=== PATIENT | female | born 1985 | race Caucasian/White ===

== ENCOUNTER 2025-04-10 14:07 | Emergency (ER) | payer OTHER ==
[~2025-04-10] VITALS: Ht 165.1 cm; Wt 45.4 kg
[2025-04-10 15:23] LABS: PLATELET COUNT (AUTO) 176 K/uL (179-408); RED BLOOD CELL COUNT(AUTO) 4.26 MIL/uL (3.63-4.92); RED CELL DISTRIBUTION WIDTH 13.3 % (12.3-17.7); WHITE BLOOD COUNT (AUTO) 10.4 K/uL (3.8-11.8)
[2025-04-10 15:31] LABS: CREATININE 0.6 mg/dL (0.6-1.3); SODIUM SERUM 144 mmol/L (136-145); UREA NITROGEN, BLOOD 11 mg/dL (7-18)
[2025-04-10 15:37] LABS: *BILIRUBIN,URIN 1+ (NEGATIVE); *BLOOD, URINE 3+ (NEGATIVE); *CLARITY,URINE SLIGHTLY CLOUDY (CLEAR); *COLOR,URINE YELLOW (YELLOW); *KETONES,URINE 4+ (NEGATIVE); *PROTEIN,URINE 1+ (NEGATIVE); *UROBILINOGEN,URINE 0.2 E.U./dl (NORMAL); LEUKOCYTE ESTERASE ,URINE NEGATIVE (NEGATIVE); NITRITE, URINE NEGATIVE (NEGATIVE); UGLUCOSE NEGATIVE (NEGATIVE)
[2025-04-10 15:37] LABS: ASPARTATE AMINOTRANSFERASE 34 U/L (15-37); TOTAL PROTEIN, SERUM 7.6 g/dL (6.4-8.2)
[2025-04-10 15:42] LABS: PREGNANCY TEST SERUM QUAN 1 miul/L (0-6)
[2025-04-10 15:48] LABS: SQUAMOUS EPITHELIAL CELL,UR MANY /HPF (NONE SEEN)
[2025-04-10] MEDS ORDERED: LACT10SO58 PO (17:01)
[2025-04-10] MEDS ORDERED: KETOROLAC TROMETHAMINE 15 MG INJ ONE (17:07)
[2025-04-10] MEDS: KETOROLAC TROMETHAMINE 15 MG INJ IVP ONE (17:08)
[2025-04-10] MEDS: IV NORMAL SALINE 1000 ML BAG IV ONE (17:08)
[2025-04-10 18:00] VITALS: BP 119/75
[2025-04-10 19:22] VITALS: BP 118/67; TEMP 98.1; O2SAT 99
== END 2025-04-10 19:00 | disposition home or self-care (01) ==
LOC: ER 14:07
DX: R10.33 Periumbilical pain (principal); F41.9 Anxiety disorder, unspecified; R10.2 Pelvic and perineal pain; Z88.8 Allergy status to other drugs, medicaments and biological substances
CPT/HCPCS: 99285; 74176; 96374; 96361; 80076; 80048; 81001; 83690; 85025; 87086; 84484; 84702; 36415; 93005; J1885; J7040; A4606; A4663